=== PATIENT | female | born 1975 | race Caucasian/White ===

== ENCOUNTER → 2017-11-01 | Outpatient (CLI) | payer OTHER ==
[~2017-11-01] MED LIST: NITR100CA PO; OXYACE5T PO; PREN-16 PO
== END ==
LOC: LAB 16:50 → LAB SHORT 16:50
PROVIDERS: Obstetrics & Gynecology
DX: N89.8 Other specified noninflammatory disorders of vagina (principal); R87.810 Cervical high risk human papillomavirus (HPV) DNA test positive
CPT/HCPCS: 87070; 87205; 87624; 88142